=== PATIENT | male | born 1965 | race Caucasian/White ===

== ENCOUNTER 2022-05-30 08:00 | Emergency (ER) | payer MEDICAID ==
[~2022-05-30] VITALS: Ht 167.6 cm; Wt 106.6 kg
[~2022-05-30 08:00] MED LIST: LISI10TA PO; METF-1243 PO; ORE25 PO
[2022-05-30 08:10] VITALS: BP 164/94
[2022-05-30] MEDS ORDERED: ACETAMINOPHEN 325 MG TAB PO ONE (08:50)
--- NOTE | 2022-05-30 08:55 | NUR ---
DR HOLLAND WITH PT FOR EVAL
--- NOTE | 2022-05-30 09:04 | NUR ---
C/O HEADACHE, SORE THROAT, RUNNY NOSE, SUBJECTIVE FEVER,COUGH X2 DAYS. DENIES MEDS PRIOR TO ARRIVAL. DENIES ANY INCREASING PAIN WITH LIGHT, DENIES ANY DIZZINESS NKA PMH: DM
[2022-05-30 09:18] VITALS: BP 157/79
[2022-05-30] MEDS ORDERED: BENZ200C4 PO (09:29)
[2022-05-30] MEDS ORDERED: ACET-10509 PO (09:29)
--- NOTE | 2022-05-30 09:39 | NUR ---
Patient discharged with v/s stable. Written and verbal after care instructions ABOUT UPPER RESPIRATORY INFECTION, GEN HEADACHE W/O CAUSE AND VIRAL ILLNESS given and explained. Patient alert, oriented and verbalized understanding of instructions. Ambulatory with steady gait. All questions addressed prior to discharge. ID band removed. Patient advised to follow up with PMD. Rx of BENZONATATE AND TYLENOL given. Patient educated on indication of medication including possible reaction and side effects. Opportunity to ask questions provided and answered.
== END 2022-05-30 09:39 | disposition home or self-care (01) ==
LOC: MED 08:00
DX: B34.9 Viral infection, unspecified (principal); Z20.822 Contact with and (suspected) exposure to COVID-19; J06.9 Acute upper respiratory infection, unspecified; R51.9 Headache, unspecified; J34.89 Other specified disorders of nose and nasal sinuses; E11.9 Type 2 diabetes mellitus without complications; I10 Essential (primary) hypertension; Z79.899 Other long term (current) drug therapy; Z79.84 Long term (current) use of oral hypoglycemic drugs
CPT/HCPCS: 99283